=== PATIENT | male | born 1960 | race Caucasian/White ===

== ENCOUNTER 2018-05-10 18:45 | Observation (INO) | payer BC ==
[~2018-05-10] VITALS: Ht 177.8 cm; Wt 121.2 kg
[~2018-05-10 18:45] MED LIST: GABAPENTIN100 MG PO; HYDROCODONE PO; LOSARTAN-HCTZ1 EAC1 PO; METHYLPREDNISOLO4 M1 PO; NEXIUM40 MG PO; OMEPRAZOLE20 M1 PO; TYLENOL WITH C1 EACH PO
[2018-05-10] MEDS ORDERED: MORPHINE SULFATE 2 MG/ML SYR IV STA (19:47)
[2018-05-10] MEDS ORDERED: ONDANSETRON HCL INJ 2 MG/ML VIAL IV STA (19:47)
[2018-05-10 19:54] LABS: BASOPHILS % 0.3 % (0.0-1.0); EOSINOPHILS # (AUTO) 0.1 (0.0-0.4); EOSINOPHILS % 0.7 % (0.0-6.0); HEMATOCRIT 40.3 % (38.2-49.6); HEMOGLOBIN 13.8 g/dL (14.0-18.0); LYMPHOCYTES % 18.7 % (18.0-39.1); MEAN CORPUSCULAR HEMOGLOBIN 29.5 pg (28-32); MEAN CORPUSCULAR HGB CONC 34.2 g/dL (31-35); MEAN CORPUSCULAR VOLUME 86.1 fL (81-99); MONOCYTES # (AUTO) 0.9 (0.2-0.8); NEUTROPHILS # (AUTO) 7.7 (2.1-6.9); NEUTROPHILS % 71.9 % (38.7-80.0); PLATELET COUNT 195 x10e3/uL (140-360); RED BLOOD COUNT 4.68 x10e6/uL (4.3-5.7); RED CELL DISTRIBUTION WIDTH 14.4 % (11.7-14.4)
[2018-05-10 19:59] LABS: BILIRUBIN,URINE NEGATIVE (NEGATIVE); CLARITY,URINE CLEAR (CLEAR); COLOR,URINE YELLOW (YELLOW); KETONES,URINE NEGATIVE (NEGATIVE); LEUKOCYTE ESTERASE ,URINE NEGATIVE (NEGATIVE); NITRITE,URINE NEGATIVE (NEGATIVE); PROTEIN,URINE DIPSTICK NEGATIVE (NEGATIVE); URINE UROBILINOGEN 0.2 mg/dL (0.2 - 1)
[2018-05-10] MEDS ORDERED: SODIUM CHLORIDE 0.9% 1000ML 1,000 ML IV ONE (20:00)
[2018-05-10 20:22] LABS: ALANINE AMINOTRANSFERASE 21 IU/L (0-55); ALBUMIN 3.9 g/dL (3.5-5.0); ALBUMIN/GLOBULIN RATIO 1.2 (0.8-2.0); ALKALINE PHOSPHATASE 61 IU/L (40-150); AMYLASE 38 U/L (25-125); ANION GAP 14.8 mmol/L (8-16); BLOOD UREA NITROGEN 11 mg/dL (7-26); BUN/CREATININE RATIO 12 (6-25); CALCIUM 9.5 mg/dL (8.4-10.2); CARBON DIOXIDE 23 mmol/L (22-29); CHLORIDE 107 mmol/L (98-107); CREATININE, SERUM 0.91 mg/dL (0.72-1.25); EST GLOMERULAR FILTRATION RATE > 60 ML/MIN (60-); GLUCOSE 97 mg/dL (74-118); LIPASE 17 U/L (8-78); POTASSIUM 3.8 mmol/L (3.5-5.1); SODIUM 141 mmol/L (136-145)
--- NOTE | 2018-05-10 22:01 | Diagnostic Imaging Report ---
EXAM: CT Abdomen and Pelvis WITH contrast INDICATION: Abdominal pain COMPARISON: None. TECHNIQUE: Abdomen and pelvis were scanned utilizing a multidetector helical scanner from the lung base to the pubic symphysis after administration of IV contrast. Coronal and sagittal reformations were obtained. Routine protocol was performed. Scan was performed when during portal venous phase. IV CONTRAST: 100 mL of Isovue-370 ORAL CONTRAST: Water RADIATION DOSE: Total DLP: 920.84 mGy*cm Estimated effective dose: (DLP x 0.015 x size factor) mSv COMPLICATIONS: None FINDINGS: LINES and TUBES: None. LOWER THORAX: Unremarkable HEPATOBILIARY: No focal hepatic lesions. No biliary ductal dilation. GALLBLADDER: There are cholecystectomy clips. SPLEEN: No splenomegaly. PANCREAS: No focal masses or ductal dilatation. ADRENALS: No adrenal nodules KIDNEYS/URETERS: Kidneys enhance symmetrically. No hydronephrosis. No cystic or solid mass lesions. No stones. GI TRACT: No abnormal distention, wall thickening, or evidence of bowel obstruction. There are diverticula within the colon without evidence of diverticulitis. The appendix is inflamed and full of fluid measuring 1 cm in diameter. Minimal periappendiceal fat stranding is present. No periappendiceal fluid collection. PELVIC ORGANS/BLADDER: Unremarkable. LYMPH NODES: No lymphadenopathy. VESSELS: There is moderate atherosclerotic disease in the aorta and major arterial branches. PERITONEUM / RETROPERITONEUM: No free air or fluid. BONES: There are severe degenerative changes in the lumbar spine at L4-5 level and into a lesser extent at L5-S1. SOFT TISSUES: Unremarkable. IMPRESSION: 1. Findings are compatible with uncomplicated acute appendicitis. 2. Sigmoid colon diverticulosis without diverticulitis. 3. Severe degenerative changes at L4-5 intervertebral disc space Signed by: Dr. Rufino Ndiaye M.D. on 05/10/2018 9:58 PM
[2018-05-10] MEDS ORDERED: PIPER-TAZ 3.375 GM 50 ML ONE (22:18)
[2018-05-10] MEDS: PIPER-TAZ 3.375 GM 50 ML IV SCH ×2 (22:20→22:56)
[2018-05-10] MEDS ORDERED: MORPHINE SULFATE 2 MG/ML SYR IV PRN (22:30)
[2018-05-10] MEDS ORDERED: ONDANSETRON HCL INJ 2 MG/ML VIAL IV PRN (22:30)
[2018-05-10] MEDS ORDERED: SODIUM CHLORIDE 0.9% 50ML 50 ML ONE (22:33)
[2018-05-10] MEDS ORDERED: IOPAMIDOL 370 MG/ML 200 ML INFUS..BTL INJ ONE (22:33)
[2018-05-10] MEDS ORDERED: NEXIUM20 MG PO (23:05)
[2018-05-10] MEDS ORDERED: MULTI-VITAMIN1 EACH PO (23:07)
[2018-05-10 23:30] VITALS: BP 139/89
[2018-05-10] MEDS: SODIUM CHLORIDE 0.9% 1000ML 1,000 ML IV SCH (23:53)
[2018-05-11] VITALS (7 sets, daily range): BP systolic 114–139; BP diastolic 56–89
[2018-05-11] MEDS ORDERED: MELATONIN3 MG PO (00:24)
[2018-05-11] MEDS: PIPER-TAZ 3.375 GM 50 ML IV SCH ×3 (05:20→18:00)
[2018-05-11 06:00] LABS: BASOPHILS % 0.2 % (0.0-1.0); EOSINOPHILS # (AUTO) 0.1 (0.0-0.4); EOSINOPHILS % 0.7 % (0.0-6.0); HEMATOCRIT 36.6 % (38.2-49.6); HEMOGLOBIN 12.4 g/dL (14.0-18.0); LYMPHOCYTES # (AUTO) 1.4 (1.0-3.2); LYMPHOCYTES % 15.8 % (18.0-39.1); MEAN CORPUSCULAR HEMOGLOBIN 29.1 pg (28-32); MEAN CORPUSCULAR HGB CONC 33.9 g/dL (31-35); MEAN CORPUSCULAR VOLUME 85.9 fL (81-99); MONOCYTES # (AUTO) 0.9 (0.2-0.8); MONOCYTES % 10.4 % (4.4-11.3); NEUTROPHILS # (AUTO) 6.2 (2.1-6.9); NEUTROPHILS % 72.6 % (38.7-80.0); PLATELET COUNT 161 x10e3/uL (140-360); RED BLOOD COUNT 4.26 x10e6/uL (4.3-5.7); RED CELL DISTRIBUTION WIDTH 14.5 % (11.7-14.4)
[2018-05-11] MEDS ORDERED: PIPER-TAZ 3.375 GM 50 ML IV SCH (06:00)
[2018-05-11 06:14] LABS: ALANINE AMINOTRANSFERASE 20 IU/L (0-55); ALBUMIN 3.3 g/dL (3.5-5.0); ALBUMIN/GLOBULIN RATIO 1.2 (0.8-2.0); ALKALINE PHOSPHATASE 61 IU/L (40-150); ANION GAP 12.9 mmol/L (8-16); BLOOD UREA NITROGEN 10 mg/dL (7-26); BUN/CREATININE RATIO 11 (6-25); CALCIUM 8.7 mg/dL (8.4-10.2); CARBON DIOXIDE 24 mmol/L (22-29); CHLORIDE 108 mmol/L (98-107); CREATININE, SERUM 0.94 mg/dL (0.72-1.25); EST GLOMERULAR FILTRATION RATE > 60 ML/MIN (60-); GLUCOSE 103 mg/dL (74-118); POTASSIUM 3.9 mmol/L (3.5-5.1); SODIUM 141 mmol/L (136-145)
[2018-05-11] MEDS ORDERED: ACETAMINOPHEN 325 MG TAB PO ONE (06:15)
[2018-05-11] MEDS: SODIUM CHLORIDE 0.9% 1000ML 1,000 ML IV SCH ×3 (06:19→22:40)
[2018-05-11] MEDS ORDERED: BUPIVACAINE 0.25%/EPI 30ML SDV INJ ONE (09:35)
[2018-05-11] MEDS ORDERED: MELATONIN 3 MG TAB PO PRN (11:30)
[2018-05-11] MEDS ORDERED: ONDANSETRON HCL INJ 2 MG/ML VIAL IV PRN (12:00)
[2018-05-11] MEDS: PANTOPRAZOLE 40 MG 10ML VIAL IV SCH (12:00)
[2018-05-11] MEDS ORDERED: HYDROMORPHONE 2MG/ML 2 MG/ML ML ONE (12:26)
--- NOTE | 2018-05-11 12:39 | Operative Report ---
DATE OF PROCEDURE: May 11, 2018 PREOPERATIVE DIAGNOSIS: Acute appendicitis. POSTOPERATIVE DIAGNOSIS: . PROCEDURE PERFORMED: Laparoscopic appendectomy. DIALYSIS CLINICAL MANAGER: BRANDT Ferraro. ESTIMATED BLOOD LOSS: Minimal. DRAINS: None. COMPLICATIONS: None. INDICATIONS AND FINDINGS: Patient is a pleasant 57-year-old male admitted complaining of abdominal pain since 1 a.m. the day prior to admission. Came to the emergency room where a CT scan revealed acute appendicitis. Physical examination had well localized tenderness in the right lower quadrant. INTRAOPERATIVE FINDINGS: Revealed acute appendicitis, suppurative type, no gross perforation. DESCRIPTION OF PROCEDURE: With the patient lying on the operative table in the supine position after administration of general endotracheal anesthesia, he was prepped and draped for laparoscopic appendectomy. The procedure was begun by establishing a pneumoperitoneum in the umbilical site after a stab wound was made in that location and the saline drop test was performed. A pneumoperitoneum was insufflated to 15 mm of pressure and then the 12 trocar placed in that location. We finally placed 2 working ports 1 in the right upper quadrant and a third one in the right suprapubic region, and then we began the procedure. We identified the appendix with the tip stuck to the lateral wall, and the proximal half of the appendix was to inflamed and nondilated. We then started the procedure by transecting the junction of the appendix with the cecum as this was the easiest part to do, and then after that we mobilized the remaining part of the appendix from the abdominal wall by electrocautery and then we cauterized part of the mesoappendix and then transected the rest with the staple white load. After we did that, we then extracted the appendix with an endobag through the umbilical port, then re-insufflated the pneumoperitoneum, inspected the operative field. Some of the old blood and clots were removed. We irrigated the right lower quadrant to ascertain there was no bleeding. We waited for several minutes until we were absolutely sure there was no bleeding, and none was seen. There was no evidence of any type of bowel injury also. At this point we released the pneumoperitoneum and closed the wounds using 0 Vicryl for the umbilical fascia, 3-0 Vicryl for the subcutaneous tissue in that location as well as the subxiphoid port, and the skin of all the ports was closed using yovany. Marcaine 0.25% with epinephrine was given as local block at the end of the case. The patient tolerated the procedure well, was taken to the recovery room in stable condition. Job#: [id number]
[2018-05-11] MEDS: HYDROCODONE/APAP 7.5MG-325MG 1 EA TAB PO PRN ×2 (16:34→21:07)
[2018-05-11] MEDS ORDERED: SUCCINYLCHOLINE 200 MG/10 ML SYR ONE (16:59)
[2018-05-11] MEDS ORDERED: SEVOFLURANE INHAL SOLN 250 ML PEN BTL ONE (16:59)
[2018-05-11] MEDS ORDERED: ACETAMINOPHEN 1000 MG/100 ML IV ONE (16:59)
[2018-05-11] MEDS ORDERED: KETOROLAC TROMETHAMINE 30 MG/ML VIAL ONE (16:59)
[2018-05-11] MEDS ORDERED: ONDANSETRON HCL INJ 2 MG/ML VIAL ONE (16:59)
[2018-05-11] MEDS ORDERED: DEXAMETHASONE SOD PHOS INJ 4 MG/ML VIAL ONE (16:59)
[2018-05-11] MEDS ORDERED: LIDOCAINE HCL 2% LOCAL INJ 5 ML SDV VIAL INJ ONE (16:59)
[2018-05-11] MEDS ORDERED: PROPOFOL IV EMULSION 10 MG/ML 20 ML VIAL ONE (16:59)
[2018-05-11] MEDS ORDERED: ROCURONIUM BROMIDE 10 MG/ML 5ML VIAL ONE (16:59)
[2018-05-11] MEDS ORDERED: FENTANYL CITRATE/PF 100MCG/2 ML INJ ONE (17:40)
[2018-05-11] MEDS ORDERED: MIDAZOLAM HCL 2 MG/2 ML VIAL ONE (17:40)
[2018-05-11] MEDS ORDERED: MELATONIN 5 MG TABLET PO SCH (21:00)
[2018-05-12] VITALS: BP 110/55
[2018-05-12] MEDS: PIPER-TAZ 3.375 GM 50 ML IV SCH ×3 (00:18→11:22)
[2018-05-12] MEDS: SODIUM CHLORIDE 0.9% 1000ML 1,000 ML IV SCH ×2 (00:18→10:00)
[2018-05-12] MEDS: HYDROCODONE/APAP 7.5MG-325MG 1 EA TAB PO PRN ×2 (01:50→06:20)
[2018-05-12 04:00] VITALS: BP 113/64
[2018-05-12 05:45] LABS: BASOPHILS % 0.2 % (0.0-1.0); EOSINOPHILS % 0.1 % (0.0-6.0); HEMATOCRIT 33.4 % (38.2-49.6); HEMOGLOBIN 11.2 g/dL (14.0-18.0); LYMPHOCYTES # (AUTO) 1.3 (1.0-3.2); LYMPHOCYTES % 13.9 % (18.0-39.1); MEAN CORPUSCULAR HEMOGLOBIN 29.2 pg (28-32); MEAN CORPUSCULAR HGB CONC 33.5 g/dL (31-35); MONOCYTES # (AUTO) 0.9 (0.2-0.8); MONOCYTES % 9.8 % (4.4-11.3); NEUTROPHILS # (AUTO) 7.1 (2.1-6.9); NEUTROPHILS % 75.6 % (38.7-80.0); PLATELET COUNT 158 x10e3/uL (140-360); RED BLOOD COUNT 3.84 x10e6/uL (4.3-5.7); RED CELL DISTRIBUTION WIDTH 14.3 % (11.7-14.4)
[2018-05-12 06:05] LABS: BLOOD UREA NITROGEN 13 mg/dL (7-26); BUN/CREATININE RATIO 14 (6-25); CALCIUM 8.4 mg/dL (8.4-10.2); CARBON DIOXIDE 21 mmol/L (22-29); CHLORIDE 109 mmol/L (98-107); CREATININE, SERUM 0.94 mg/dL (0.72-1.25); EST GLOMERULAR FILTRATION RATE > 60 ML/MIN (60-); GLUCOSE 100 mg/dL (74-118); SODIUM 140 mmol/L (136-145)
[2018-05-12 08:26] VITALS: BP 126/73
[2018-05-12 08:30] VITALS: BP 126/73
[2018-05-12] MEDS ORDERED: LOSARTAN POTASSIUM 100 MG TAB PO SCH (09:00)
[2018-05-12] MEDS ORDERED: PANTOPRAZOLE SOD 40 MG TABEC PO SCH ×2 (09:00)
[2018-05-12] MEDS: PANTOPRAZOLE 40 MG 10ML VIAL IV SCH (11:22)
[2018-05-12] MEDS ORDERED: TYLENOL WITH C1 EACH PO (11:51)
[2018-05-12 12:49] VITALS: BP 124/72
== END 2018-05-12 13:01 | disposition home or self-care (01) ==
LOC: ER 18:45 → INTOOBSV 22:23 → ERHOLD 22:23 → MED/SURG 23:13
PROVIDERS: ADMIT Internal Medicine; ATTEND Internal Medicine
DX: K35.80 Unspecified acute appendicitis (principal); I10 Essential (primary) hypertension; K21.9 Gastro-esophageal reflux disease without esophagitis
CPT/HCPCS: 36415 ×3; 44970; 74177; 80048; 80053 ×2; 81001; 82150; 83690; 85025 ×3; 88304; 93005; 96374; 99284; C1766; G0378 ×3; J1100; J1170; J1885; J2001; J2250; J2270; J2405 ×2; J2543 ×3; J7030 ×3; Q9967

== ENCOUNTER 2020-12-13 21:14 | Emergency (ER) | payer BC ==
[~2020-12-13] VITALS: Ht 177.8 cm; Wt 121.1 kg
[~2020-12-13 21:14] MED LIST changes: +MELATONIN3 MG PO; +MULTI-VITAMIN1 EACH PO; +NEXIUM20 MG PO
[2020-12-13] MEDS ORDERED: KETOROLAC TROMETHAMINE 30 MG/ML VIAL IV STA (23:02)
[2020-12-13] MEDS ORDERED: SODIUM CHLORIDE 0.9% 1000ML 1,000 ML IV STA (23:02)
[2020-12-13 23:42] LABS: BASOPHILS # (AUTO) 0.1 (0.0-0.1); BASOPHILS % 0.8 % (0.0-1.0); EOSINOPHILS # (AUTO) 0.2 (0.0-0.4); EOSINOPHILS % 2.8 % (0.0-6.0); HEMATOCRIT 41.5 % (38.2-49.6); HEMOGLOBIN 13.6 g/dL (14.0-18.0); LYMPHOCYTES # (AUTO) 2.3 (1.0-3.2); LYMPHOCYTES % 32.1 % (18.0-39.1); MEAN CORPUSCULAR HEMOGLOBIN 28.6 pg (28-32); MEAN CORPUSCULAR HGB CONC 32.8 g/dL (31-35); MEAN CORPUSCULAR VOLUME 87.2 fL (81-99); MONOCYTES # (AUTO) 0.8 (0.2-0.8); MONOCYTES % 10.6 % (4.4-11.3); NEUTROPHILS # (AUTO) 3.8 (2.1-6.9); NEUTROPHILS % 53.3 % (38.7-80.0); PLATELET COUNT 232 x10e3/uL (140-360); RED BLOOD COUNT 4.76 x10e6/uL (4.3-5.7); RED CELL DISTRIBUTION WIDTH 14.5 % (11.7-14.4)
[2020-12-13 23:43] LABS: CLARITY,URINE CLEAR (CLEAR); COLOR,URINE YELLOW (YELLOW); KETONES,URINE NEGATIVE (NEGATIVE); LEUKOCYTE ESTERASE ,URINE NEGATIVE (NEGATIVE); NITRITE,URINE NEGATIVE (NEGATIVE); PROTEIN,URINE DIPSTICK NEGATIVE (NEGATIVE); URINE UROBILINOGEN 0.2 mg/dL (0.2 - 1)
[2020-12-13 23:52] LABS: BACTERIA,URINE RARE /HPF; RBC,URINE 0-5 /HPF (0-5); WBC,URINE (MAN) 0-5 /HPF (0-5)
[2020-12-14 00:02] LABS: ALBUMIN 3.8 g/dL (3.5-5.0); ALBUMIN/GLOBULIN RATIO 1.2 (0.8-2.0); ANION GAP 15.1 mmol/L (8-16); CALCIUM 8.7 mg/dL (8.4-10.2); CREATININE, SERUM 1.27 mg/dL (0.72-1.25); POTASSIUM 4.1 mmol/L (3.5-5.1)
[2020-12-14] MEDS ORDERED: VALIUM10 MG PO (02:10)
[2020-12-14] MEDS ORDERED: NAPROXEN250 MG PO (02:10)
[2020-12-14] MEDS ORDERED: DIAZEPAM 5 MG TAB PO PRN (02:15)
[2020-12-14] MEDS ORDERED: DIAZEPAM 5 MG TAB ONE (02:20)
[2020-12-14] MEDS ORDERED: IOPAMIDOL 370 MG/ML 200 ML INFUS..BTL INJ ONE (07:35)
[2020-12-14] MEDS ORDERED: SODIUM CHLORIDE 0.9% 50ML 50 ML ONE (07:36)
== END 2020-12-14 02:24 | disposition home or self-care (01) ==
LOC: ER 21:35
DX: R10.31 Right lower quadrant pain (principal); M54.5 Low back pain; I10 Essential (primary) hypertension; K21.9 Gastro-esophageal reflux disease without esophagitis; Z96.611 Presence of right artificial shoulder joint
CPT/HCPCS: 36415; 74177; 80053; 81001; 85025; 99284; J1885; J7030; Q9967

== ENCOUNTER 2022-11-25 18:37 | Emergency (ER) | payer BC ==
[~2022-11-25] VITALS: Ht 177.8 cm; Wt 121.1 kg
[~2022-11-25 18:37] MED LIST changes: +NAPROXEN250 MG PO; +VALIUM10 MG PO
[2022-11-25] MEDS ORDERED: ONDANSETRON HCL INJ 2MG/ML 2ML 2 MG/ML VIAL IV STA (19:18)
[2022-11-25] MEDS ORDERED: FAMOTIDINE 20 MG/2 ML VIAL IV STA (19:18)
[2022-11-25 19:23] LABS: BASOPHILS # (AUTO) 0.1 (0.0-0.1); BASOPHILS % 0.8 % (0.0-1.0); EOSINOPHILS # (AUTO) 0.2 (0.0-0.4); EOSINOPHILS % 2.2 % (0.0-6.0); HEMATOCRIT 40.7 % (38.2-49.6); HEMOGLOBIN 13.5 g/dL (14.0-18.0); LYMPHOCYTES # (AUTO) 1.3 (1.0-3.2); LYMPHOCYTES % 14.2 % (18.0-39.1); MEAN CORPUSCULAR HEMOGLOBIN 28.6 pg (28-32); MEAN CORPUSCULAR HGB CONC 33.2 g/dL (31-35); MEAN CORPUSCULAR VOLUME 86.2 fL (81-99); MONOCYTES # (AUTO) 0.9 (0.2-0.8); MONOCYTES % 10.4 % (4.4-11.3); NEUTROPHILS # (AUTO) 6.4 (2.1-6.9); NEUTROPHILS % 71.9 % (38.7-80.0); PLATELET COUNT 256 x10e3/uL (140-360); RED BLOOD COUNT 4.72 x10e6/uL (4.3-5.7); RED CELL DISTRIBUTION WIDTH 13.9 % (11.7-14.4)
[2022-11-25] MEDS ORDERED: FENTANYL 100 MCG/HR PATCH TOP ONE (19:30)
[2022-11-25 19:42] LABS: ALANINE AMINOTRANSFERASE 14 IU/L (0-55); ALBUMIN 3.1 g/dL (3.5-5.0); ALBUMIN/GLOBULIN RATIO 0.9 (0.8-2.0); ALKALINE PHOSPHATASE 67 IU/L (40-150); ANION GAP 13.2 mmol/L (8-16); BLOOD UREA NITROGEN 10 mg/dL (7-26); BUN/CREATININE RATIO 9 (6-25); CALCIUM 8.7 mg/dL (8.4-10.2); CARBON DIOXIDE 23 mmol/L (22-29); CHLORIDE 106 mmol/L (98-107); CREATINE KINASE 137 IU/L (30-200); CREATININE, SERUM 1.16 mg/dL (0.72-1.25); GLUCOSE 113 mg/dL (74-118); POTASSIUM 4.2 mmol/L (3.5-5.1); SODIUM 138 mmol/L (136-145)
[2022-11-25] MEDS ORDERED: FENTANYL CITRATE/PF 100MCG/2 ML INJ IV ONE (19:45)
[2022-11-25] MEDS ORDERED: IOPAMIDOL 370 MG/ML 100 ML INFUS..BTL INJ ONE (19:46)
[2022-11-25] MEDS ORDERED: CIPRO500 MG PO (20:27)
[2022-11-25] MEDS ORDERED: ONDANSETRON ODT4 MG PO (20:27)
[2022-11-25] MEDS ORDERED: METRONIDAZOLE500 MG PO (20:27)
[2022-11-25] MEDS ORDERED: ULTRAM 50MG50 MG PO (20:27)
[2022-11-25 21:48] VITALS: BP 125/75
[2022-12-02] MEDS ORDERED: TRAZODONE HCL50 MG PO (07:44)
[2022-12-02] MEDS ORDERED: DIOVAN160 MG PO (07:44)
[2022-12-02] MEDS ORDERED: OMEPRAZOLE40 MG PO (07:44)
[2022-12-02] MEDS ORDERED: SERTRALINE HCL100 MG PO (07:45)
[2022-12-02] MEDS ORDERED: GLUCOSAMINE &1 EACH PO (07:45)
[2022-12-02] MEDS ORDERED: BUSPIRONE HCL5 MG PO (07:45)
[2022-12-02] MEDS ORDERED: SIMVASTATIN20 MG PO (07:45)
[2022-12-02] MEDS ORDERED: VIT D3 PO (07:46)
[2022-12-07] MEDS ORDERED: PANTOPRAZOLE SO40 MG PO (16:21)
== END 2022-11-25 22:00 | disposition home or self-care (01) ==
LOC: ER 18:51
DX: R10.13 Epigastric pain (principal); I10 Essential (primary) hypertension; K21.9 Gastro-esophageal reflux disease without esophagitis
CPT/HCPCS: 36415; 74177; 80053; 82550; 82553; 83690; 84484; 85025; 99284; J2405; J3010; Q9967

== ENCOUNTER 2022-11-30 08:08 | Emergency (ER) | payer BC ==
[~2022-11-30] VITALS: Ht 177.8 cm; Wt 121.1 kg
[~2022-11-30 08:08] MED LIST changes: +CIPRO500 MG PO; +METRONIDAZOLE500 MG PO; +ONDANSETRON ODT4 MG PO; +ULTRAM 50MG50 MG PO
[2022-11-30] MEDS ORDERED: DONNATAL/LIDOCAINE/MAALOX 30 ML SUSP PO STA (08:56)
[2022-11-30 09:20] LABS: BASOPHILS # (AUTO) 0.1 (0.0-0.1); BASOPHILS % 0.6 % (0.0-1.0); EOSINOPHILS # (AUTO) 0.1 (0.0-0.4); EOSINOPHILS % 0.9 % (0.0-6.0); HEMOGLOBIN 14.5 g/dL (14.0-18.0); LYMPHOCYTES # (AUTO) 1.2 (1.0-3.2); MEAN CORPUSCULAR HEMOGLOBIN 28.6 pg (28-32); MEAN CORPUSCULAR VOLUME 86.8 fL (81-99); MONOCYTES # (AUTO) 1.1 (0.2-0.8); MONOCYTES % 10.4 % (4.4-11.3); NEUTROPHILS % 76.1 % (38.7-80.0); PLATELET COUNT 327 x10e3/uL (140-360); RED BLOOD COUNT 5.07 x10e6/uL (4.3-5.7); RED CELL DISTRIBUTION WIDTH 14.2 % (11.7-14.4)
[2022-11-30 09:34] LABS: ALBUMIN/GLOBULIN RATIO 0.9 (0.8-2.0); ANION GAP 15.4 mmol/L (8-16); CALCIUM 9.4 mg/dL (8.4-10.2); CREATININE, SERUM 1.61 mg/dL (0.72-1.25); POTASSIUM 4.4 mmol/L (3.5-5.1)
[2022-11-30 09:55] LABS: LIPASE 26 U/L (8-78)
[2022-11-30 11:44] VITALS: BP 123/75
[2022-12-02] MEDS ORDERED: TRAZODONE HCL50 MG PO (07:44)
[2022-12-02] MEDS ORDERED: OMEPRAZOLE40 MG PO (07:44)
[2022-12-02] MEDS ORDERED: DIOVAN160 MG PO (07:44)
[2022-12-02] MEDS ORDERED: SIMVASTATIN20 MG PO (07:45)
[2022-12-02] MEDS ORDERED: GLUCOSAMINE &1 EACH PO (07:45)
[2022-12-02] MEDS ORDERED: BUSPIRONE HCL5 MG PO (07:45)
[2022-12-02] MEDS ORDERED: SERTRALINE HCL100 MG PO (07:45)
[2022-12-02] MEDS ORDERED: VIT D3 PO (07:46)
== END 2022-11-30 11:49 | disposition home or self-care (01) ==
LOC: ER 08:14
DX: R10.13 Epigastric pain (principal); K22.9 Disease of esophagus, unspecified; R11.2 Nausea with vomiting, unspecified; I10 Essential (primary) hypertension; K21.9 Gastro-esophageal reflux disease without esophagitis
CPT/HCPCS: 36415; 74220; 80053; 83690; 84484; 85025; 93005; 99284

== ENCOUNTER 2022-12-03 12:00 | Inpatient (IN) | payer BC ==
[~2022-12-03 12:00] MED LIST changes: +BUSPIRONE HCL5 MG PO; +DIOVAN160 MG PO; +GLUCOSAMINE &1 EACH PO; +OMEPRAZOLE40 MG PO; +SERTRALINE HCL100 MG PO; +SIMVASTATIN20 MG PO; +TRAZODONE HCL50 MG PO; +VIT D3 PO
[2022-12-03] MEDS ORDERED: LACTATED RINGER'S 1,000 ML ONE (12:15)
[2022-12-03] MEDS ORDERED: PROPOFOL IV EMULSION 0 ML IV ONE (13:10)
[2022-12-03 14:38] LABS: BASOPHILS % 0.3 % (0.0-1.0); EOSINOPHILS % 0.3 % (0.0-6.0); HEMATOCRIT 43.3 % (38.2-49.6); HEMOGLOBIN 14.5 g/dL (14.0-18.0); LYMPHOCYTES % 7.6 % (18.0-39.1); MEAN CORPUSCULAR HEMOGLOBIN 28.6 pg (28-32); MEAN CORPUSCULAR HGB CONC 33.5 g/dL (31-35); MEAN CORPUSCULAR VOLUME 85.4 fL (81-99); MONOCYTES # (AUTO) 1.1 (0.2-0.8); MONOCYTES % 9.1 % (4.4-11.3); NEUTROPHILS # (AUTO) 10.2 (2.1-6.9); NEUTROPHILS % 81.7 % (38.7-80.0); PLATELET COUNT 372 x10e3/uL (140-360); RED BLOOD COUNT 5.07 x10e6/uL (4.3-5.7); RED CELL DISTRIBUTION WIDTH 14.1 % (11.7-14.4)
[2022-12-03 14:53] LABS: INR 1.28; PROTHROMBIN TIME 16.5 seconds (11.9-14.5)
[2022-12-03 14:54] LABS: PARTIAL THROMBOPLASTIN TIME 38.3 seconds (23.8-35.5)
[2022-12-03 15:00] LABS: ANION GAP 19.2 mmol/L (8-16); CALCIUM 9.1 mg/dL (8.4-10.2); CREATININE, SERUM 1.86 mg/dL (0.72-1.25); POTASSIUM 4.2 mmol/L (3.5-5.1)
[2022-12-03] MEDS ORDERED: ALBUMIN 25% 12.5GM 50ML 200 ML IV ONE (15:37)
[2022-12-03 16:18] LABS: BODY FLUID APPEARANCE CLOUDY; BODY FLUID COLOR RED; BODY FLUID TYPE PERITONEAL
[2022-12-03 16:19] LABS: RBC,BODY FLUID 2000 cells/uL; WBC,BODY FLUID 1945 cells/uL
[2022-12-03 17:00] VITALS: BP 111/65
[2022-12-03 17:23] LABS: LYMPHOCYTES,BODY FLUID 43 %; MONO/MACROPHG,BODY FLUID 25 %; NEUTROPHILS,BODY FLUID 11 %; OTHER CELLS,BODY FLUID 21 %
[2022-12-03] MEDS ORDERED: CEFTRIAXONE 1 GM VIAL IM ONE (19:20)
[2022-12-03 20:19] VITALS: BP 115/78
[2022-12-03 20:26] LABS: ALBUMIN 2.7 g/dL (3.5-5.0); BILIRUBIN,DIRECT 0.3 mg/dL (0.0-0.5)
[2022-12-03 20:30] VITALS: BP 115/78
[2022-12-03] MEDS ORDERED: SODIUM CHLORIDE 0.9% 250ML 250 ML ONE (21:17)
[2022-12-03] MEDS: CEFTRIAXONE 2 GM in SODIUM CHLORIDE 0.9% 100 ML IV SCH (21:52)
[2022-12-03] MEDS ORDERED: BUSPIRONE HCL 5 MG TAB PO PRN (23:15)
[2022-12-04] VITALS (7 sets, daily range): BP systolic 115–142; BP diastolic 70–89
[2022-12-04 06:00] LABS: BASOPHILS # (AUTO) 0.1 (0.0-0.1); BASOPHILS % 0.5 % (0.0-1.0); EOSINOPHILS % 0.2 % (0.0-6.0); HEMATOCRIT 40.7 % (38.2-49.6); HEMOGLOBIN 13.1 g/dL (14.0-18.0); LYMPHOCYTES # (AUTO) 1.1 (1.0-3.2); LYMPHOCYTES % 10.1 % (18.0-39.1); MEAN CORPUSCULAR HEMOGLOBIN 28.5 pg (28-32); MEAN CORPUSCULAR HGB CONC 32.2 g/dL (31-35); MEAN CORPUSCULAR VOLUME 88.5 fL (81-99); MONOCYTES # (AUTO) 1.2 (0.2-0.8); MONOCYTES % 10.8 % (4.4-11.3); NEUTROPHILS # (AUTO) 8.6 (2.1-6.9); NEUTROPHILS % 77.5 % (38.7-80.0); PLATELET COUNT 324 x10e3/uL (140-360)
[2022-12-04] MEDS ORDERED: CEFTRIAXONE 1 GM VIAL IM SCH (06:00)
[2022-12-04 06:14] LABS: ALBUMIN/GLOBULIN RATIO 0.9 (0.8-2.0); ANION GAP 12.2 mmol/L (8-16); CALCIUM 8.8 mg/dL (8.4-10.2); CREATININE, SERUM 1.15 mg/dL (0.72-1.25); MAGNESIUM 2.3 MG/DL (1.3-2.1); POTASSIUM 4.2 mmol/L (3.5-5.1)
[2022-12-04] MEDS ORDERED: PANTOPRAZOLE SOD 40 MG TABEC PO SCH (09:00)
[2022-12-04] MEDS: SERTRALINE HCL 100 MG TAB PO SCH ×2 (12:02→16:06)
[2022-12-04] MEDS: ACETAMINOPHEN 325 MG TAB PO PRN (16:06)
[2022-12-04] MEDS ORDERED: LACTATED RINGER'S 1,000 ML INJ ONE (17:00)
[2022-12-04] MEDS: CEFTRIAXONE 2 GM in SODIUM CHLORIDE 0.9% 100 ML IV SCH (20:34)
[2022-12-04] MEDS: TRAZODONE HCL 50 MG TAB PO SCH (20:35)
[2022-12-04] MEDS: SIMVASTATIN 20 MG TAB PO SCH (20:35)
[2022-12-05] VITALS (7 sets, daily range): BP systolic 107–136; BP diastolic 76–92
[2022-12-05 03:46] LABS: CLARITY,URINE CLEAR (CLEAR); COLOR,URINE AMBER (YELLOW); KETONES,URINE TRACE (NEGATIVE); LEUKOCYTE ESTERASE ,URINE NEGATIVE (NEGATIVE); NITRITE,URINE NEGATIVE (NEGATIVE); PROTEIN,URINE DIPSTICK TRACE (NEGATIVE); URINE UROBILINOGEN 0.2 mg/dL (0.2 - 1)
[2022-12-05 03:51] LABS: BACTERIA,URINE FEW /HPF; EPITHELIAL CELLS,URINE RARE /LPF; WBC,URINE (MAN) 0-5 /HPF (0-5)
[2022-12-05 04:55] LABS: BASOPHILS # (AUTO) 0.1 (0.0-0.1); BASOPHILS % 0.6 % (0.0-1.0); EOSINOPHILS # (AUTO) 0.1 (0.0-0.4); EOSINOPHILS % 1.2 % (0.0-6.0); HEMATOCRIT 41.6 % (38.2-49.6); HEMOGLOBIN 13.8 g/dL (14.0-18.0); LYMPHOCYTES # (AUTO) 1.1 (1.0-3.2); LYMPHOCYTES % 13.7 % (18.0-39.1); MEAN CORPUSCULAR HEMOGLOBIN 28.4 pg (28-32); MEAN CORPUSCULAR HGB CONC 33.2 g/dL (31-35); MEAN CORPUSCULAR VOLUME 85.6 fL (81-99); MONOCYTES % 12.3 % (4.4-11.3); NEUTROPHILS # (AUTO) 5.9 (2.1-6.9); NEUTROPHILS % 71.4 % (38.7-80.0); PLATELET COUNT 315 x10e3/uL (140-360); RED BLOOD COUNT 4.86 x10e6/uL (4.3-5.7); RED CELL DISTRIBUTION WIDTH 13.8 % (11.7-14.4)
[2022-12-05 05:12] LABS: ALBUMIN 2.6 g/dL (3.5-5.0); ALBUMIN/GLOBULIN RATIO 0.8 (0.8-2.0); ANION GAP 14.2 mmol/L (8-16); CALCIUM 8.9 mg/dL (8.4-10.2); CREATININE, SERUM 0.95 mg/dL (0.72-1.25); MAGNESIUM 1.8 MG/DL (1.3-2.1); POTASSIUM 4.2 mmol/L (3.5-5.1)
[2022-12-05] MEDS: SERTRALINE HCL 100 MG TAB PO SCH ×2 (09:00→17:00)
[2022-12-05] MEDS ORDERED: HYOSCYAMINE SULFATE 0.5 MG/ML INJ ONE (13:34)
[2022-12-05] MEDS ORDERED: GLYCOPYRROLATE INJ 0.2 MG/ML VIAL ONE (13:34)
[2022-12-05] MEDS ORDERED: POVIDONE IODINE 0.05% 0.05 % ML PO ONE (13:34)
[2022-12-05] MEDS ORDERED: PROPOFOL IV EMULSION 10 MG/ML 20 ML VIAL ONE (13:34)
[2022-12-05] MEDS ORDERED: LIDOCAINE HCL 2% LOCAL INJ 5 ML SDV VIAL INJ ONE ×2 (13:34)
[2022-12-05] MEDS ORDERED: ONDANSETRON HCL INJ 2MG/ML 2ML 2 MG/ML VIAL ONE (16:34)
[2022-12-05] MEDS ORDERED: ONDANSETRON HCL INJ 2MG/ML 2ML 2 MG/ML VIAL IV ONE (16:36)
[2022-12-05] MEDS ORDERED: METOCLOPRAMIDE HCL 10 MG/2ML VIAL ONE (16:46)
[2022-12-05] MEDS ORDERED: METOCLOPRAMIDE HCL 10 MG/2ML VIAL IV ONE (16:48)
[2022-12-05] MEDS ORDERED: FENTANYL CITRATE/PF 100MCG/2 ML INJ ONE (17:52)
[2022-12-05] MEDS: SIMVASTATIN 20 MG TAB PO SCH (22:36)
[2022-12-05] MEDS: CEFTRIAXONE 2 GM in SODIUM CHLORIDE 0.9% 100 ML IV SCH (22:36)
[2022-12-05] MEDS: TRAZODONE HCL 50 MG TAB PO SCH (22:36)
[2022-12-06] VITALS (10 sets, daily range): BP systolic 72–152; BP diastolic 73–93
[2022-12-06 06:25] LABS: BASOPHILS # (AUTO) 0.1 (0.0-0.1); BASOPHILS % 0.5 % (0.0-1.0); EOSINOPHILS # (AUTO) 0.1 (0.0-0.4); EOSINOPHILS % 0.6 % (0.0-6.0); HEMOGLOBIN 13.6 g/dL (14.0-18.0); LYMPHOCYTES # (AUTO) 1.3 (1.0-3.2); MEAN CORPUSCULAR HEMOGLOBIN 28.3 pg (28-32); MEAN CORPUSCULAR HGB CONC 33.2 g/dL (31-35); MEAN CORPUSCULAR VOLUME 85.2 fL (81-99); MONOCYTES # (AUTO) 1.1 (0.2-0.8); MONOCYTES % 11.8 % (4.4-11.3); NEUTROPHILS % 73.2 % (38.7-80.0); PLATELET COUNT 341 x10e3/uL (140-360); RED BLOOD COUNT 4.81 x10e6/uL (4.3-5.7); RED CELL DISTRIBUTION WIDTH 13.5 % (11.7-14.4)
[2022-12-06 06:49] LABS: ALBUMIN 2.5 g/dL (3.5-5.0); ALBUMIN/GLOBULIN RATIO 0.7 (0.8-2.0); CALCIUM 8.6 mg/dL (8.4-10.2); CREATININE, SERUM 0.86 mg/dL (0.72-1.25)
[2022-12-06] MEDS: SERTRALINE HCL 100 MG TAB PO SCH ×2 (09:54→17:44)
[2022-12-06] MEDS: SIMVASTATIN 20 MG TAB PO SCH (20:18)
[2022-12-06] MEDS: ACETAMINOPHEN 325 MG TAB PO PRN (20:18)
[2022-12-06] MEDS: TRAZODONE HCL 50 MG TAB PO SCH (20:18)
[2022-12-06] MEDS: CEFTRIAXONE 2 GM in SODIUM CHLORIDE 0.9% 100 ML IV SCH (20:19)
[2022-12-07 04:00] VITALS: BP 113/87
[2022-12-07 05:10] LABS: BASOPHILS # (AUTO) 0.1 (0.0-0.1); BASOPHILS % 0.6 % (0.0-1.0); EOSINOPHILS # (AUTO) 0.1 (0.0-0.4); EOSINOPHILS % 0.8 % (0.0-6.0); HEMATOCRIT 42.4 % (38.2-49.6); HEMOGLOBIN 14.2 g/dL (14.0-18.0); LYMPHOCYTES # (AUTO) 1.1 (1.0-3.2); LYMPHOCYTES % 11.3 % (18.0-39.1); MEAN CORPUSCULAR HEMOGLOBIN 28.4 pg (28-32); MEAN CORPUSCULAR HGB CONC 33.5 g/dL (31-35); MEAN CORPUSCULAR VOLUME 84.8 fL (81-99); MONOCYTES # (AUTO) 1.1 (0.2-0.8); MONOCYTES % 11.3 % (4.4-11.3); NEUTROPHILS # (AUTO) 7.3 (2.1-6.9); NEUTROPHILS % 74.8 % (38.7-80.0); PLATELET COUNT 349 x10e3/uL (140-360); RED CELL DISTRIBUTION WIDTH 13.4 % (11.7-14.4)
[2022-12-07 05:47] LABS: ALBUMIN 2.5 g/dL (3.5-5.0); ALBUMIN/GLOBULIN RATIO 0.7 (0.8-2.0); ANION GAP 16.1 mmol/L (8-16); CALCIUM 8.8 mg/dL (8.4-10.2); CREATININE, SERUM 0.94 mg/dL (0.72-1.25); POTASSIUM 4.1 mmol/L (3.5-5.1)
[2022-12-07 08:00] VITALS: BP 118/85
[2022-12-07 08:31] VITALS: BP 118/85
[2022-12-07] MEDS: SERTRALINE HCL 100 MG TAB PO SCH (09:03)
[2022-12-07 12:13] VITALS: BP 124/87
[2022-12-07 15:55] VITALS: BP 133/87
[2022-12-07] MEDS ORDERED: PANTOPRAZOLE SO40 MG PO (16:21)
== END 2022-12-07 17:09 | disposition home or self-care (01) | DRG 948 ==
LOC: OR 12:00 → MED/SURG3 14:13
PROVIDERS: ADMIT Internal Medicine; ATTEND Internal Medicine
PROC: 0W9G3ZZ Drainage of Peritoneal Cavity, Percutaneous Approach (ICD-10-PCS; principal; 2022-12-03)
PROC: 0DB98ZX Excision of Duodenum, Via Natural or Artificial Opening Endoscopic, Diagnostic (ICD-10-PCS; 2022-12-05)
PROC: 0DB18ZX Excision of Upper Esophagus, Via Natural or Artificial Opening Endoscopic, Diagnostic (ICD-10-PCS; 2022-12-05)
PROC: 0DB78ZX Excision of Stomach, Pylorus, Via Natural or Artificial Opening Endoscopic, Diagnostic (ICD-10-PCS; 2022-12-05 15:44)
DX: R18.8 Other ascites (principal); N17.9 Acute kidney failure, unspecified; K76.6 Portal hypertension; K22.10 Ulcer of esophagus without bleeding; K57.90 Diverticulosis of intestine, part unspecified, without perforation or abscess without bleeding; K21.9 Gastro-esophageal reflux disease without esophagitis; E78.5 Hyperlipidemia, unspecified; F41.9 Anxiety disorder, unspecified; Z68.35 Body mass index [BMI] 35.0-35.9, adult; N40.0 Benign prostatic hyperplasia without lower urinary tract symptoms; F32.A Depression, unspecified; I95.9 Hypotension, unspecified; R00.0 Tachycardia, unspecified; I12.9 Hypertensive chronic kidney disease with stage 1 through stage 4 chronic kidney disease, or unspecified chronic kidney disease; N18.9 Chronic kidney disease, unspecified; K44.9 Diaphragmatic hernia without obstruction or gangrene; K29.80 Duodenitis without bleeding; Z90.49 Acquired absence of other specified parts of digestive tract
CPT/HCPCS: 36415; 43239; 43450; 49083; 71045; 76705; 76770; 80048; 80053; 80076; 81001; 82040; 82378; 83735; 83880; 84157; 85025; 85610; 85730; 86039; 86704; 87070; 87116; 87205; 87206; 88112; 88300; 88305; 88312; 88342; 89051; 93005; J0696; J1980; J2001; J2405; J2765; J7050

== ENCOUNTER 2022-12-10 18:30 | Inpatient (IN) | payer BC ==
[~2022-12-10] VITALS: Ht 177.8 cm; Wt 107.0 kg
[~2022-12-10 18:30] MED LIST changes: +PANTOPRAZOLE SO40 MG PO
[2022-12-10 19:25] LABS: BASOPHILS # (AUTO) 0.1 (0.0-0.1); BASOPHILS % 0.6 % (0.0-1.0); EOSINOPHILS % 0.3 % (0.0-6.0); HEMATOCRIT 41.6 % (38.2-49.6); HEMOGLOBIN 14.2 g/dL (14.0-18.0); LYMPHOCYTES # (AUTO) 1.4 (1.0-3.2); LYMPHOCYTES % 10.5 % (18.0-39.1); MEAN CORPUSCULAR HEMOGLOBIN 28.5 pg (28-32); MEAN CORPUSCULAR HGB CONC 34.1 g/dL (31-35); MEAN CORPUSCULAR VOLUME 83.5 fL (81-99); MONOCYTES # (AUTO) 1.6 (0.2-0.8); MONOCYTES % 12.2 % (4.4-11.3); NEUTROPHILS # (AUTO) 10.1 (2.1-6.9); NEUTROPHILS % 74.8 % (38.7-80.0); PLATELET COUNT 439 x10e3/uL (140-360); RED BLOOD COUNT 4.98 x10e6/uL (4.3-5.7); RED CELL DISTRIBUTION WIDTH 13.2 % (11.7-14.4)
[2022-12-10 19:30] LABS: INR 0.99; PROTHROMBIN TIME 13.6 seconds (11.9-14.5)
[2022-12-10] MEDS ORDERED: ONDANSETRON HCL INJ 2MG/ML 2ML 2 MG/ML VIAL IV PRN (19:30)
[2022-12-10] MEDS ORDERED: SODIUM CHLORIDE FLUSH 10 ML SYR INJ PRN (19:30)
[2022-12-10 19:37] LABS: ALBUMIN 2.4 g/dL (3.5-5.0); ALBUMIN/GLOBULIN RATIO 0.5 (0.8-2.0); ANION GAP 17.9 mmol/L (8-16); CALCIUM 9.3 mg/dL (8.4-10.2); CREATININE, SERUM 1.52 mg/dL (0.72-1.25); POTASSIUM 4.9 mmol/L (3.5-5.1)
[2022-12-10] MEDS: HYDROCODONE/APAP 5MG-325MG TAB PO PRN (21:02)
[2022-12-10 21:36] VITALS: BP 126/98; PULSE 106; RESP 20; TEMP 97.2; O2SAT 100
[2022-12-10 22:13] LABS: HIV 1&2 AB SCREEN NON-REACTIVE (NONREACTIVE)
[2022-12-10 22:45] VITALS: BP 126/98; PULSE 106; RESP 20; TEMP 97.2; O2SAT 100
[2022-12-10 22:58] VITALS: BP 126/98; PULSE 106; RESP 20; TEMP 97.2; O2SAT 100
[2022-12-11] VITALS (7 sets, daily range): BP systolic 118–144; BP diastolic 83–96; PULSE 100–109; RESP 18–20; TEMP 97.1–99.3; O2SAT 98–100
[2022-12-11] MEDS ORDERED: CEFTRIAXONE 1 GM VIAL IM ONE (00:30)
[2022-12-11] MEDS ORDERED: SODIUM CHLORIDE 0.9% 250ML 250 ML ONE (01:15)
[2022-12-11 05:39] LABS: BASOPHILS # (AUTO) 0.1 (0.0-0.1); BASOPHILS % 0.6 % (0.0-1.0); EOSINOPHILS # (AUTO) 0.1 (0.0-0.4); EOSINOPHILS % 0.6 % (0.0-6.0); HEMATOCRIT 39.2 % (38.2-49.6); HEMOGLOBIN 13.3 g/dL (14.0-18.0); LYMPHOCYTES # (AUTO) 1.1 (1.0-3.2); LYMPHOCYTES % 9.5 % (18.0-39.1); MEAN CORPUSCULAR HEMOGLOBIN 28.5 pg (28-32); MEAN CORPUSCULAR HGB CONC 33.9 g/dL (31-35); MEAN CORPUSCULAR VOLUME 84.1 fL (81-99); MONOCYTES # (AUTO) 1.4 (0.2-0.8); MONOCYTES % 12.5 % (4.4-11.3); NEUTROPHILS # (AUTO) 8.4 (2.1-6.9); NEUTROPHILS % 75.2 % (38.7-80.0); PLATELET COUNT 405 x10e3/uL (140-360); RED BLOOD COUNT 4.66 x10e6/uL (4.3-5.7); RED CELL DISTRIBUTION WIDTH 13.2 % (11.7-14.4)
[2022-12-11 06:11] LABS: ALBUMIN 2.1 g/dL (3.5-5.0); ALBUMIN/GLOBULIN RATIO 0.5 (0.8-2.0); ANION GAP 16.3 mmol/L (8-16); CALCIUM 8.8 mg/dL (8.4-10.2); CREATININE, SERUM 1.23 mg/dL (0.72-1.25); POTASSIUM 4.3 mmol/L (3.5-5.1)
[2022-12-11] MEDS ORDERED: ACETAMINOPHEN 325 MG TAB PO PRN (10:30)
[2022-12-11] MEDS: HYDROCODONE/APAP 5MG-325MG TAB PO PRN ×2 (10:38→19:23)
[2022-12-11] MEDS ORDERED: ALBUMIN 25% 12.5GM 50ML 200 ML IV ONE (15:00)
[2022-12-11 16:14] LABS: BODY FLUID TYPE PERITONEAL
[2022-12-11 16:15] LABS: BODY FLUID APPEARANCE CLOUDY; BODY FLUID COLOR RED; RBC,BODY FLUID 12000 cells/uL; WBC,BODY FLUID 1102 cells/uL
[2022-12-11 16:45] LABS: LYMPHOCYTES,BODY FLUID 29 %; MONO/MACROPHG,BODY FLUID 14 %; NEUTROPHILS,BODY FLUID 23 %; OTHER CELLS,BODY FLUID 34 %
[2022-12-11] MEDS: HYDROMORPHONE 1MG/1ML INJ IV PRN (21:11)
[2022-12-12] VITALS (8 sets, daily range): BP systolic 118–139; BP diastolic 73–93; PULSE 89–114; RESP 17–20; TEMP 97.9–98.6; O2SAT 98–100
[2022-12-12] MEDS: HYDROMORPHONE 1MG/1ML INJ IV PRN ×6 (00:37→23:06)
[2022-12-12 08:21] LABS: BASOPHILS # (AUTO) 0.1 (0.0-0.1); BASOPHILS % 0.5 % (0.0-1.0); EOSINOPHILS % 0.3 % (0.0-6.0); HEMOGLOBIN 14.3 g/dL (14.0-18.0); LYMPHOCYTES % 7.1 % (18.0-39.1); MEAN CORPUSCULAR HEMOGLOBIN 28.6 pg (28-32); MONOCYTES # (AUTO) 1.7 (0.2-0.8); MONOCYTES % 11.4 % (4.4-11.3); NEUTROPHILS # (AUTO) 11.7 (2.1-6.9); NEUTROPHILS % 79.4 % (38.7-80.0); PLATELET COUNT 470 x10e3/uL (140-360); RED CELL DISTRIBUTION WIDTH 13.1 % (11.7-14.4)
[2022-12-12 08:50] LABS: ALBUMIN 2.6 g/dL (3.5-5.0); ALBUMIN/GLOBULIN RATIO 0.6 (0.8-2.0); ANION GAP 18.4 mmol/L (8-16); CALCIUM 9.2 mg/dL (8.4-10.2); CREATININE, SERUM 1.07 mg/dL (0.72-1.25); POTASSIUM 4.4 mmol/L (3.5-5.1)
[2022-12-12] MEDS: SENNOSIDES 8.6 MG TAB PO SCH (08:59)
[2022-12-12] MEDS: DOCUSATE SODIUM 100 MG CAP PO SCH (08:59)
[2022-12-12 09:34] LABS: CREATININE,URINE RANDOM 231.98 mg/dL (63-166)
[2022-12-12 10:27] LABS: CLARITY,URINE TURBID (CLEAR); COLOR,URINE ORANGE (YELLOW)
[2022-12-12 10:28] LABS: KETONES,URINE 1+ (NEGATIVE); LEUKOCYTE ESTERASE ,URINE NEGATIVE (NEGATIVE); NITRITE,URINE NEGATIVE (NEGATIVE); PROTEIN,URINE DIPSTICK 1+ (NEGATIVE); URINE UROBILINOGEN 0.2 mg/dL (0.2 - 1)
[2022-12-12 10:35] LABS: BACTERIA,URINE FEW /HPF; WBC,URINE (MAN) 0-5 /HPF (0-5)
[2022-12-12 10:45] LABS: SODIUM,URINE < 20 mmol/L
[2022-12-12 21:52] LABS: WBC,FECAL (FECAL LACTOFERRIN) NEGATIVE (NEGATIVE)
[2022-12-13] VITALS (8 sets, daily range): BP systolic 118–140; BP diastolic 79–93; PULSE 82–99; RESP 16–22; TEMP 97.8–98.1; O2SAT 98–100
[2022-12-13 06:46] LABS: BASOPHILS # (AUTO) 0.1 (0.0-0.1); BASOPHILS % 0.4 % (0.0-1.0); EOSINOPHILS # (AUTO) 0.1 (0.0-0.4); EOSINOPHILS % 0.4 % (0.0-6.0); HEMATOCRIT 42.2 % (38.2-49.6); HEMOGLOBIN 14.4 g/dL (14.0-18.0); LYMPHOCYTES % 7.5 % (18.0-39.1); MEAN CORPUSCULAR HEMOGLOBIN 28.5 pg (28-32); MEAN CORPUSCULAR HGB CONC 34.1 g/dL (31-35); MEAN CORPUSCULAR VOLUME 83.4 fL (81-99); MONOCYTES # (AUTO) 1.7 (0.2-0.8); MONOCYTES % 12.8 % (4.4-11.3); NEUTROPHILS # (AUTO) 10.4 (2.1-6.9); NEUTROPHILS % 77.1 % (38.7-80.0); PLATELET COUNT 442 x10e3/uL (140-360); RED BLOOD COUNT 5.06 x10e6/uL (4.3-5.7)
[2022-12-13 07:07] LABS: ALBUMIN 2.3 g/dL (3.5-5.0); ALBUMIN/GLOBULIN RATIO 0.5 (0.8-2.0); ANION GAP 16.7 mmol/L (8-16); CALCIUM 9.4 mg/dL (8.4-10.2); CREATININE, SERUM 1.14 mg/dL (0.72-1.25); POTASSIUM 4.7 mmol/L (3.5-5.1)
[2022-12-13] MEDS: DOCUSATE SODIUM 100 MG CAP PO SCH (08:50)
[2022-12-13] MEDS: SENNOSIDES 8.6 MG TAB PO SCH (08:50)
[2022-12-13] MEDS: HYDROMORPHONE 1MG/1ML INJ IV PRN ×5 (09:38→20:18)
[2022-12-13] MEDS: HYDROCODONE/APAP 5MG-325MG TAB PO PRN (18:06)
[2022-12-14 04:29] VITALS: BP 127/85; PULSE 95; RESP 20; TEMP 97.8; O2SAT 95
[2022-12-14] MEDS: HYDROMORPHONE 1MG/1ML INJ IV PRN ×3 (05:30→17:53)
[2022-12-14 05:41] LABS: BASOPHILS # (AUTO) 0.1 (0.0-0.1); BASOPHILS % 0.5 % (0.0-1.0); EOSINOPHILS % 0.3 % (0.0-6.0); HEMATOCRIT 41.3 % (38.2-49.6); LYMPHOCYTES % 8.5 % (18.0-39.1); MEAN CORPUSCULAR HEMOGLOBIN 28.3 pg (28-32); MEAN CORPUSCULAR HGB CONC 33.9 g/dL (31-35); MEAN CORPUSCULAR VOLUME 83.4 fL (81-99); MONOCYTES # (AUTO) 1.6 (0.2-0.8); MONOCYTES % 13.6 % (4.4-11.3); NEUTROPHILS # (AUTO) 8.5 (2.1-6.9); NEUTROPHILS % 74.7 % (38.7-80.0); PLATELET COUNT 470 x10e3/uL (140-360); RED BLOOD COUNT 4.95 x10e6/uL (4.3-5.7); RED CELL DISTRIBUTION WIDTH 12.6 % (11.7-14.4)
[2022-12-14 06:17] LABS: ALBUMIN 2.1 g/dL (3.5-5.0); ALBUMIN/GLOBULIN RATIO 0.5 (0.8-2.0); ANION GAP 15.7 mmol/L (8-16); CREATININE, SERUM 1.12 mg/dL (0.72-1.25); POTASSIUM 4.7 mmol/L (3.5-5.1)
[2022-12-14] MEDS: SENNOSIDES 8.6 MG TAB PO SCH (08:10)
[2022-12-14] MEDS: DOCUSATE SODIUM 100 MG CAP PO SCH (08:10)
[2022-12-14 09:00] VITALS: BP 127/85; PULSE 95; RESP 20; TEMP 97.8; O2SAT 95
[2022-12-14] MEDS ORDERED: BUPIVACAINE 0.5%/EPI 30 ML SDV INJ ONE (10:30)
[2022-12-14] MEDS ORDERED: SUGAMMADEX SODIUM 200 MG/2 ML VIAL IV ONE (10:34)
[2022-12-14] MEDS ORDERED: ACETAMINOPHEN 1000 MG/100 ML 100 ML IV ONE (10:35)
[2022-12-14] MEDS ORDERED: SODIUM CHLORIDE 0.9% 100 ML ONE (10:35)
[2022-12-14] MEDS ORDERED: FENTANYL CITRATE/PF 100MCG/2 ML INJ ONE (12:03)
[2022-12-14] MEDS ORDERED: LIDOCAINE HCL 2% LOCAL INJ 5 ML SDV VIAL INJ ONE (12:26)
[2022-12-14] MEDS ORDERED: PROPOFOL IV EMULSION 10 MG/ML 20 ML VIAL ONE (12:26)
[2022-12-14] MEDS ORDERED: DEXAMETHASONE SOD PHOS INJ 4 MG/ML SDV ONE (12:26)
[2022-12-14] MEDS ORDERED: ROCURONIUM BROMIDE 10 MG/ML 5ML VIAL IV ONE (12:26)
[2022-12-14] MEDS ORDERED: ONDANSETRON HCL INJ 2MG/ML 2ML 2 MG/ML VIAL ONE ×2 (12:26→12:50)
[2022-12-14] MEDS ORDERED: SEVOFLURANE INHAL SOLN 250 ML PEN BTL ONE (12:26)
[2022-12-14] MEDS ORDERED: POVIDONE IODINE 0.05% 0.05 % ML PO ONE (12:26)
[2022-12-14] MEDS ORDERED: ACETAMINOPHEN 1000 MG/100 ML IV PRN (12:45)
[2022-12-14] MEDS: SODIUM CHLORIDE 0.9% 1000ML 1,000 ML IV SCH (13:12)
[2022-12-14] MEDS ORDERED: ONDANSETRON HCL 4 MG ORAL DISINTEGRATING TAB PO PRN (14:00)
[2022-12-14] MEDS: HYDROCODONE/APAP 7.5MG-325MG 1 EA TAB PO PRN (15:14)
[2022-12-14 15:32] VITALS: BP 130/80; PULSE 76; RESP 18; O2SAT 98
[2022-12-14 16:00] VITALS: BP 131/79; PULSE 75; RESP 19; TEMP 97.6; O2SAT 100
[2022-12-14] MEDS ORDERED: ALPRAZOLAM 0.25 MG TAB PO PRN (18:45)
[2022-12-14 20:00] VITALS: BP 131/79; PULSE 75; RESP 16; TEMP 97.6; O2SAT 100
[2022-12-14 20:41] VITALS: BP 125/86; PULSE 73; RESP 16; TEMP 98.1; O2SAT 98
[2022-12-15] VITALS (7 sets, daily range): BP systolic 119–135; BP diastolic 80–91; PULSE 76–82; RESP 16–21; TEMP 97.6–98.3; O2SAT 99–100
[2022-12-15] MEDS: SODIUM CHLORIDE 0.9% 1000ML 1,000 ML IV SCH ×2 (00:55→13:03)
[2022-12-15] MEDS: HYDROMORPHONE 1MG/1ML INJ IV PRN ×3 (03:04→17:32)
[2022-12-15 05:58] LABS: BASOPHILS % 0.2 % (0.0-1.0); EOSINOPHILS % 0.1 % (0.0-6.0); HEMOGLOBIN 13.1 g/dL (14.0-18.0); LYMPHOCYTES # (AUTO) 0.9 (1.0-3.2); LYMPHOCYTES % 6.3 % (18.0-39.1); MEAN CORPUSCULAR HEMOGLOBIN 28.2 pg (28-32); MEAN CORPUSCULAR HGB CONC 34.5 g/dL (31-35); MEAN CORPUSCULAR VOLUME 81.9 fL (81-99); MONOCYTES # (AUTO) 1.8 (0.2-0.8); MONOCYTES % 12.3 % (4.4-11.3); NEUTROPHILS # (AUTO) 11.9 (2.1-6.9); NEUTROPHILS % 79.9 % (38.7-80.0); PLATELET COUNT 419 x10e3/uL (140-360); RED BLOOD COUNT 4.64 x10e6/uL (4.3-5.7); RED CELL DISTRIBUTION WIDTH 12.9 % (11.7-14.4)
[2022-12-15 06:31] LABS: ALBUMIN 1.8 g/dL (3.5-5.0); ALBUMIN/GLOBULIN RATIO 0.5 (0.8-2.0); ANION GAP 14.6 mmol/L (8-16); CALCIUM 8.4 mg/dL (8.4-10.2); CREATININE, SERUM 0.88 mg/dL (0.72-1.25); POTASSIUM 4.6 mmol/L (3.5-5.1)
[2022-12-15] MEDS: SENNOSIDES 8.6 MG TAB PO SCH (08:13)
[2022-12-15] MEDS: DOCUSATE SODIUM 100 MG CAP PO SCH (08:13)
[2022-12-15] MEDS ORDERED: ALPRAZOLAM 0.5 MG TAB PO PRN (09:00)
[2022-12-15] MEDS ORDERED: BUSPIRONE HCL 5 MG TAB PO PRN (09:00)
[2022-12-15] MEDS: MULTIVITAMINS/MINERALS TAB PO SCH (09:15)
[2022-12-15] MEDS ORDERED: SERTRALINE HCL 100 MG TAB PO SCH (09:30)
[2022-12-15] MEDS ORDERED: CLONIDINE HCL 0.2 MG/24 HR 1 EA PATCH TOP SCH (11:30)
[2022-12-15] MEDS: HYDROCODONE/APAP 7.5MG-325MG 1 EA TAB PO PRN ×2 (13:10→21:05)
[2022-12-15] MEDS: SODIUM BICARBONATE 650 MG TAB PO SCH (16:27)
[2022-12-15] MEDS: SODIUM CHLORIDE 1 GM TAB PO SCH ×2 (16:27→21:06)
[2022-12-15] MEDS: TRAZODONE HCL 50 MG TAB PO SCH (21:06)
[2022-12-15] MEDS: SIMVASTATIN 20 MG TAB PO SCH (21:07)
[2022-12-16] VITALS (8 sets, daily range): BP systolic 129–152; BP diastolic 76–94; PULSE 78–100; RESP 16–20; TEMP 97.2–98.2; O2SAT 95–100
[2022-12-16] MEDS: SODIUM CHLORIDE 0.9% 1000ML 1,000 ML IV SCH ×2 (00:40→15:00)
[2022-12-16] MEDS: HYDROCODONE/APAP 7.5MG-325MG 1 EA TAB PO PRN (04:27)
[2022-12-16 06:05] LABS: BASOPHILS # (AUTO) 0.1 (0.0-0.1); BASOPHILS % 0.6 % (0.0-1.0); EOSINOPHILS % 0.4 % (0.0-6.0); HEMATOCRIT 38.6 % (38.2-49.6); HEMOGLOBIN 13.1 g/dL (14.0-18.0); LYMPHOCYTES # (AUTO) 0.8 (1.0-3.2); LYMPHOCYTES % 7.3 % (18.0-39.1); MEAN CORPUSCULAR HEMOGLOBIN 28.2 pg (28-32); MEAN CORPUSCULAR HGB CONC 33.9 g/dL (31-35); MEAN CORPUSCULAR VOLUME 83.2 fL (81-99); MONOCYTES # (AUTO) 1.6 (0.2-0.8); MONOCYTES % 14.4 % (4.4-11.3); NEUTROPHILS # (AUTO) 8.2 (2.1-6.9); NEUTROPHILS % 75.5 % (38.7-80.0); PLATELET COUNT 416 x10e3/uL (140-360); RED BLOOD COUNT 4.64 x10e6/uL (4.3-5.7); RED CELL DISTRIBUTION WIDTH 12.8 % (11.7-14.4)
[2022-12-16 06:40] LABS: ALBUMIN 1.5 g/dL (3.5-5.0); ALBUMIN/GLOBULIN RATIO 0.4 (0.8-2.0); ANION GAP 11.9 mmol/L (8-16); CALCIUM 8.2 mg/dL (8.4-10.2); CREATININE, SERUM 0.81 mg/dL (0.72-1.25); POTASSIUM 4.9 mmol/L (3.5-5.1)
[2022-12-16] MEDS: DOCUSATE SODIUM 100 MG CAP PO SCH (09:00)
[2022-12-16] MEDS: SENNOSIDES 8.6 MG TAB PO SCH (09:00)
[2022-12-16] MEDS: HYDROMORPHONE 1MG/1ML INJ IV PRN ×5 (09:29→23:11)
[2022-12-16] MEDS: SODIUM BICARBONATE 650 MG TAB PO SCH ×2 (09:30→16:58)
[2022-12-16] MEDS: MULTIVITAMINS/MINERALS TAB PO SCH (09:30)
[2022-12-16] MEDS: SODIUM CHLORIDE 1 GM TAB PO SCH ×3 (09:30→20:15)
[2022-12-16] MEDS ORDERED: IOPAMIDOL 370 MG/ML 100 ML INFUS..BTL INJ ONE (11:23)
[2022-12-16 14:33] LABS: INR 0.98; PROTHROMBIN TIME 13.5 seconds (11.9-14.5)
[2022-12-16] MEDS: SIMVASTATIN 20 MG TAB PO SCH (20:14)
[2022-12-16] MEDS: TRAZODONE HCL 50 MG TAB PO SCH (20:15)
[2022-12-17] MEDS: HYDROMORPHONE 1MG/1ML INJ IV PRN ×7 (02:07→22:43)
[2022-12-17] MEDS: SODIUM CHLORIDE 0.9% 1000ML 1,000 ML IV SCH ×2 (02:08→15:00)
[2022-12-17 04:22] VITALS: BP 132/89; PULSE 89; RESP 18; TEMP 98.4; O2SAT 100
[2022-12-17 05:55] LABS: BASOPHILS # (AUTO) 0.1 (0.0-0.1); BASOPHILS % 0.9 % (0.0-1.0); EOSINOPHILS # (AUTO) 0.1 (0.0-0.4); EOSINOPHILS % 0.7 % (0.0-6.0); HEMATOCRIT 39.8 % (38.2-49.6); LYMPHOCYTES # (AUTO) 1.1 (1.0-3.2); LYMPHOCYTES % 10.2 % (18.0-39.1); MEAN CORPUSCULAR HEMOGLOBIN 27.8 pg (28-32); MEAN CORPUSCULAR HGB CONC 32.7 g/dL (31-35); MEAN CORPUSCULAR VOLUME 85.2 fL (81-99); MONOCYTES # (AUTO) 1.6 (0.2-0.8); MONOCYTES % 14.6 % (4.4-11.3); NEUTROPHILS # (AUTO) 7.5 (2.1-6.9); NEUTROPHILS % 70.9 % (38.7-80.0); PLATELET COUNT 408 x10e3/uL (140-360); RED BLOOD COUNT 4.67 x10e6/uL (4.3-5.7)
[2022-12-17 06:22] LABS: ALBUMIN 1.5 g/dL (3.5-5.0); ALBUMIN/GLOBULIN RATIO 0.4 (0.8-2.0); CALCIUM 8.3 mg/dL (8.4-10.2); CREATININE, SERUM 0.81 mg/dL (0.72-1.25); MAGNESIUM 1.9 MG/DL (1.3-2.1)
[2022-12-17 08:26] VITALS: BP 130/87; PULSE 102; RESP 20; TEMP 98.4; O2SAT 94
[2022-12-17 09:00] VITALS: BP 130/87; PULSE 102; RESP 20; TEMP 98.4; O2SAT 94
[2022-12-17] MEDS: SODIUM BICARBONATE 650 MG TAB PO SCH ×2 (09:06→16:59)
[2022-12-17] MEDS: SODIUM CHLORIDE 1 GM TAB PO SCH ×3 (09:07→19:57)
[2022-12-17] MEDS: MULTIVITAMINS/MINERALS TAB PO SCH (09:08)
[2022-12-17] MEDS: DOCUSATE SODIUM 100 MG CAP PO SCH (09:10)
[2022-12-17] MEDS: SENNOSIDES 8.6 MG TAB PO SCH (09:10)
[2022-12-17] MEDS ORDERED: VALGANCICLOVIR450 MG PO (09:12)
[2022-12-17] MEDS ORDERED: FENTANYL 25 MCG/HR PATCH TOP SCH (09:45)
[2022-12-17 11:30] VITALS: BP 134/88; PULSE 89; RESP 18; TEMP 97.6; O2SAT 99
[2022-12-17 16:00] VITALS: BP 129/89; PULSE 91; RESP 20; TEMP 97.8; O2SAT 99
[2022-12-17] MEDS ORDERED: IOPAMIDOL 370 MG/ML 100 ML INFUS..BTL INJ ONE (17:50)
[2022-12-17] MEDS: SIMVASTATIN 20 MG TAB PO SCH (19:57)
[2022-12-17] MEDS: TRAZODONE HCL 50 MG TAB PO SCH (19:58)
[2022-12-17 20:00] VITALS: BP 124/78; PULSE 85; RESP 20; TEMP 98.4; O2SAT 99
[2022-12-18 00:21] VITALS: BP 132/86; PULSE 96; RESP 17; TEMP 98.2; O2SAT 98
[2022-12-18] MEDS: HYDROMORPHONE 1MG/1ML INJ IV PRN ×3 (01:59→08:29)
[2022-12-18] MEDS: SODIUM CHLORIDE 0.9% 1000ML 1,000 ML IV SCH (03:30)
[2022-12-18 04:00] VITALS: BP 133/85; PULSE 106; RESP 16; TEMP 98; O2SAT 98
[2022-12-18 06:25] LABS: ANION GAP 15.1 mmol/L (8-16); CREATININE, SERUM 0.79 mg/dL (0.72-1.25); POTASSIUM 5.1 mmol/L (3.5-5.1)
[2022-12-18 06:36] LABS: CALCIUM 8.6 mg/dL (8.4-10.2)
[2022-12-18 08:24] VITALS: BP 124/89; PULSE 91; RESP 20; TEMP 98.1; O2SAT 98
[2022-12-18] MEDS: SODIUM BICARBONATE 650 MG TAB PO SCH (08:26)
[2022-12-18] MEDS: DOCUSATE SODIUM 100 MG CAP PO SCH (08:27)
[2022-12-18] MEDS: SODIUM CHLORIDE 1 GM TAB PO SCH (08:27)
[2022-12-18] MEDS: MULTIVITAMINS/MINERALS TAB PO SCH (08:27)
[2022-12-18] MEDS: SENNOSIDES 8.6 MG TAB PO SCH (08:33)
[2022-12-18] MEDS ORDERED: ALPRAZOLAM0.5 MG PO (08:54)
[2022-12-18] MEDS ORDERED: ONDANSETRON ODT4 MG PO (08:54)
[2022-12-18] MEDS ORDERED: SODIUM BICARBO650 MG PO (08:54)
[2022-12-18] MEDS ORDERED: HYDROCODON-ACE1 EA12 PO (08:54)
[2022-12-18] MEDS ORDERED: FENTANYL1 EACH TOP (08:54)
[2022-12-18] MEDS ORDERED: SODIUM CHLORI1000 M2 PO (08:54)
[2022-12-18 09:36] VITALS: BP 124/89; PULSE 91; RESP 20; TEMP 98.1; O2SAT 98
[2022-12-18] MEDS ORDERED: HYDROMORPHONE HC2 MG PO (10:56)
== END 2022-12-18 11:48 | disposition home or self-care (01) | DRG 357 ==
LOC: ER 18:38 → ERHOLD 20:03 → MED/SURG3 21:08 → OBSVTOIN 12-12 10:19 → INTOOBSV 12-12 10:20
PROVIDERS: ADMIT Internal Medicine; ATTEND Internal Medicine
PROC: 0W9G4ZX Drainage of Peritoneal Cavity, Percutaneous Endoscopic Approach, Diagnostic (ICD-10-PCS; principal; 2022-12-11)
PROC: 0DBU4ZX Excision of Omentum, Percutaneous Endoscopic Approach, Diagnostic (ICD-10-PCS; 2022-12-12)
PROC: 0DBW4ZX Excision of Peritoneum, Percutaneous Endoscopic Approach, Diagnostic (ICD-10-PCS; 2022-12-12)
PROC: 0W9G4ZX Drainage of Peritoneal Cavity, Percutaneous Endoscopic Approach, Diagnostic (ICD-10-PCS; 2022-12-16)
DX: C78.6 Secondary malignant neoplasm of retroperitoneum and peritoneum (principal); B25.8 Other cytomegaloviral diseases; E22.2 Syndrome of inappropriate secretion of antidiuretic hormone; R18.8 Other ascites; N17.9 Acute kidney failure, unspecified; R18.0 Malignant ascites; D84.81 Immunodeficiency due to conditions classified elsewhere; K20.80 Other esophagitis without bleeding; I10 Essential (primary) hypertension; E78.5 Hyperlipidemia, unspecified; K21.9 Gastro-esophageal reflux disease without esophagitis; K21.00 Gastro-esophageal reflux disease with esophagitis, without bleeding; E78.2 Mixed hyperlipidemia; K57.90 Diverticulosis of intestine, part unspecified, without perforation or abscess without bleeding; N40.0 Benign prostatic hyperplasia without lower urinary tract symptoms; Z88.5 Allergy status to narcotic agent; Z20.822 Contact with and (suspected) exposure to COVID-19; K22.2 Esophageal obstruction; K74.60 Unspecified cirrhosis of liver; I11.9 Hypertensive heart disease without heart failure; C80.1 Malignant (primary) neoplasm, unspecified
CPT/HCPCS: 0223U; 36415; 49083; 71045; 71260; 74177; 74470; 76705; 80048; 80053; 81001; 82040; 82378; 82570; 83630; 83735; 83930; 83935; 83993; 84157; 84300; 84439; 84443; 84480; 85025; 85610; 86704; 87045; 87070; 87071; 87075; 87116; 87177; 87205; 87206; 87324; 87390; 87449; 88112; 88300; 88304; 88305; 88331; 88342; 89051; 93005; 96361; 99284; G0378; G0433; G0435; J0696; J1100; J1170; J2001; J2405; J7030; J7050; Q0162; Q9967

== ENCOUNTER → 2022-12-21 | Outpatient (CLI) | payer BC ==
[~2022-12-21] MED LIST changes: +ALBUMIN 25% 12.5GM 50ML 150 ML IV ONE; +ALPRAZOLAM0.5 MG PO; +FENTANYL1 EACH TOP; +HYDROCODON-ACE1 EA12 PO; +HYDROMORPHONE HC2 MG PO; +SODIUM BICARBO650 MG PO; +SODIUM CHLORI1000 M2 PO; +VALGANCICLOVIR450 MG PO
== END ==
LOC: US 11:41
PROVIDERS: ATTEND Internal Medicine Gastroenterology
DX: R18.8 Other ascites (principal)
CPT/HCPCS: 49083